=== PATIENT | female | born 1945 | race Caucasian/White ===

== ENCOUNTER 2019-07-30 16:28 | Emergency (ER) | payer MEDICARE, OTHER ==
[~2019-07-30] VITALS: Ht 147 cm; Wt 41.0 kg
--- NOTE | 2019-07-30 16:53 | ED Neurological Problem ---
General Chief Complaint: Trauma-Non Activation Stated Complaint: HIGH BLOOD PRESSURE Nursing Triage Note: THE [facility] REPORTS THAT THE PT WAS GETTING READY TO GO HOME FOR THE WEEKEND WITH HER GRANDDAUGHTER AND STATED SHE FELT A LITTLE DIZZY WITH A HEADACHE. THE [facility] GAVE HER TYLENOL AND IN[facility] WHEN HER GRANDDAUGHTER ARRIVED. THE PT FELL WHILE WALKING WITHOUT INJURIES REPORTED. PT HAS A HISTORY OF A CVA AND RIGHT-SIDED RESIDUAL WEAKNESS AND DEFICITS. BP AT THE GA WAS 124/107. Nursing Sepsis Screen: No Definite Risk Source: patient, EMS Exam Limitations: no limitations History of Present Illness Date Seen by Provider: Jul 30, 2019 Time Seen by Provider: 16:52 Initial Comments The patient is a 73-year-old white female who lives at a care facility. Earlier this afternoon she was eager to go to her granddaughter's home as she had a headache and thought it would be better served to be in a quiet place. She then complained of increasing headache and dizziness. The facility found her blood pressure to be elevated. The ambulance was called and after negotiation brought her here. She does not describe any loss of speech or new muscle/coordination deficits. She states that she had her first stroke in 1969. She more recently suffered a stroke that apparently gave her at least transient right-sided weakness. Her granddaughter states that earlier in 2018 she had an intracranial bleed. Timing/Duration: 1-3 hours Associated Symptoms: other (increasing memory loss over the past several years.) Allergies and Home Medications Patient Home Medication List Home Medication List Reviewed: Yes Review of Systems Review of Systems Constitutional: see HPI Eyes: No Symptoms Reported Ears, Nose, Mouth, Throat: no symptoms reported Respiratory: no symptoms reported Cardiovascular: no symptoms reported Gastrointestinal: no symptoms reported Genitourinary: no symptoms reported Musculoskeletal: no symptoms reported Skin: no symptoms reported Psychiatric/Neurological: No Symptoms Reported Endocrine: No Symptoms Reported Hematologic/Lymphatic: No Symptoms Reported Past Nciyguv-Vvxtjn-Qfuugx Hx Patient Social History Recent Foreign Travel: No Contact w/Someone Who Travel: No Recent Infectious Disease Expo: No Physical Exam Vital Signs Vital Signs - First Documented 07/30/19 16:41 Temp 36.8 Pulse 61 Resp 14 B/P (MAP) 182/91 (121) Pulse Ox 94 O2 Delivery Room Air Capillary Refill : Less Than 3 Seconds Height, Weight, BMI Height: '" Weight: lbs. oz. kg; 18.00 BMI Method: General Appearance: other (alert and somewhat contrary) HEENT: normal ENT inspection Neck: full range of motion Respiratory: chest non-tender, lungs clear, normal breath sounds, no respiratory distress, no accessory muscle use, respiratory distress Cardiovascular: normal peripheral pulses, regular rate, rhythm, no edema, no gallop, no JVD, no murmur Gastrointestinal: normal bowel sounds, non tender, soft, no organomegaly, no pulsatile mass Back: normal inspection, no CVA tenderness, no vertebral tenderness, CVA tenderness (R), CVA tenderness (L) Extremities: normal range of motion, non-tender, normal inspection, no pedal edema, no calf tenderness, normal capillary refill, pelvis stable 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, no motor/sensory deficits, alert, normal mood/affect, oriented x 3, abnormal cerebellar tests Coordination/Gait: normal finger to nose Motor/Sensory: no motor deficit, no sensory deficit, no pronator drift Skin: normal color, warm/dry Lymphatic: no adenopathy Appears older than stated age Progress/Results/Core Measures Results/Orders My Orders Orders - CONY ORTEGA MD Ct Head Wo (07/30/19 16:36) Ekg Tracing (07/30/19 17:38) Vital Signs/I&O 07/30/19 16:41 Temp 36.8 Pulse 61 Resp 14 B/P (MAP) 182/91 (121) Pulse Ox 94 O2 Delivery Room Air Blood Pressure Mean: 121 POS Departure Communication (Admissions) Given the history of relatively recent brainwave the patient was never a candidate for thrombolytic therapy. The physical findings are not significant enough to consider that either. She and her granddaughter were negotiating her abilities to be at the granddaughters home. The granddaughter was clear that after she had been there and left alone for a short time recently she was found lying in the yard. She is more than willing to accommodate her but only when she will be present at home. Impression Primary Impression: hypertension Additional Impressions: headache previous history of multiple strokes Disposition: HOME, SELF-CARE Condition: Stable/Unchanged Departure-Patient Inst. Decision time for Depature: 17:59 Add. Discharge Instructions: All discharge instructions reviewed with patient and/or family. Voiced understanding. Resume previous medications. Careful attention to blood pressure. Return to ER if physical symptoms increase CONY ORTEGA MD Jul 30, 2019 16:53 POS
--- NOTE | 2019-07-30 17:01 | Diagnostic Imaging Report ---
INDICATION: Fell. History of stroke. Poor historian. FINDINGS: Noncontrast CT scan of the head demonstrates moderate atrophy and white matter changes consistent with microvascular disease. An old lacunar infarct is present in the right basal ganglia. No insular ribbon sign or hyperdense MCA sign is present. Calcifications are present in both carotid siphons. There is also calcification of the vertebral arteries. No mass effect, midline shift, hemorrhage or extra-axial fluid collections are present. The osseous structures appear normal. IMPRESSION: There is atrophy and small vessel disease with an old lacunar infarct. Vascular calcifications are present. No acute findings are seen. Dictated by: Dictated on workstation # [id number]
[2019-07-30 17:56] VITALS: BP 170/84
--- OUTSIDE RECORDS SUMMARY | 2019-08-26 02:01 | XMS REPORT | Continuity of Care Document ---
Demographics Preferred Language Unknown Marital Status Unknown Sikhism Affiliation Unknown Race Unknown Ethnic Group Unknown Author Organization Unknown Address Unknown Phone Unavailable Allergies There is no data. Medications There is no data. Problems Date Dx Coded Attending Type Code Diagnosis Diagnosed By 08/03/2019 CONY ORTEGA MD, Ot I10 ESSENTIAL (PRIMARY) HYPERTENSION 08/03/2019 CONY ORTEGA MD Ot R03 .0 ELEVATED BLOOD-PRESSURE READING, W/O FOZIA 08/03/2019 OCNY ORTEGA MD Ot R51 HEADACHE 08/03/2019 CONY ORTEGA MD Ot Z86.73 PRSNL HX OF TIA (TIA), AND CEREB INFRC W 08/05/2019 CONY ORTEGA MD Ot I10 ESSENTIAL (PRIMARY) HYPERTENSION 08/05/2019 CONY ORTEGA MD Ot R03 .0 ELEVATED BLOOD-PRESSURE READING, W/O FOZIA 08/05/2019 CONY ORTEGA MD Ot R51 HEADACHE 08/05/2019 CONY ORTEGA MD Ot Z86.73 PRSNL HX OF TIA (TIA), AND CEREB INFRC W Procedures There is no data. Results Test Result Range CMP - 07/01/19 12:33 GLUCOSE 74 mg/dL 65-99 UREA NITROGEN (BUN) 21 mg/dL 7-25 CREATININE 0.74 mg/dL 0.60-0.93 eGFR NON-AFR. CENTRAL AFRICAN 80 mL/min/1.73m2 > OR = 60 eGFR 92 mL/min/1.73m2 > OR = 60 BUN/CREATININE RATIO NOT APPLICABLE (calc) 6-22 SODIUM 143 mmol/L 135-146 POTASSIUM 4.0 mmol/L 3.5-5.3 CHLORIDE 108 mmol/L 98-110 CARBON DIOXIDE 29 mmol/L 20-32 CALCIUM 8.6 mg/dL 8.6-10.4 PROTEIN, TOTAL 5.5 g/dL 6.1-8.1 ALBUMIN 3.3 g/dL 3.6-5.1 GLOBULIN 2.2 g/dL (calc) 1.9-3.7 ALBUMIN/GLOBULIN RATIO 1.5 (calc) 1.0-2. 5 BILIRUBIN, TOTAL 0.3 mg/dL 0.2-1.2 ALKALINE PHOSPHATASE 73 U/L 33-130 AST 14 U/L 10-35 ALT 4 U/L 6-29 CBC - 07/01/19 12:33 WHITE BLOOD CELL COUNT 4.8 Thousand/uL 3 .8-10.8 RED BLOOD CELL COUNT 3.06 Million/uL 3.8 0-5.10 HEMOGLOBIN 9.7 g/dL 11.7-15.5 HEMATOCRIT 30.3 % 35.0-45.0 MCV 99.0 fL 80.0-100.0 MCH 31.7 pg 27.0-33.0 MCHC 32.0 g/dL 32.0-36.0 RDW 13.5 % 11.0-15.0 PLATELET COUNT 216 Thousand/uL 140-400 MPV 10.7 fL 7.5-12.5 ABSOLUTE NEUTROPHILS 3106 cells/uL 1500- 7800 ABSOLUTE LYMPHOCYTES 1133 cells/uL 850-3 900 ABSOLUTE MONOCYTES 302 cells/uL 200-950 ABSOLUTE EOSINOPHILS 230 cells/uL 15-500 ABSOLUTE BASOPHILS 29 cells/uL 0-200 NEUTROPHILS 64.7 % NRG LYMPHOCYTES 23.6 % NRG MONOCYTES 6.3 % NRG EOSINOPHILS 4.8 % NRG BASOPHILS 0.6 % NRG Encounters ACCT No. Visit Date/Time Discharge Status Pt. Type Provider Facility Loc./Unit Complaint [id number] 07/01/2019 17:45:00 Document Registration [id number] 07/30/2019 16:30:00 019 17:56:00 DIS Outpatient JORDAN SANTOS, CONY Vazquez [facility] ER FS HIGH BLOOD PRESSURE
== END 2019-07-30 17:56 | disposition home or self-care (01) ==
LOC: ER FS 16:30
DX: I10 Essential (primary) hypertension (principal); R51 Headache; Z86.73 Personal history of transient ischemic attack (TIA), and cerebral infarction without residual deficits
CPT/HCPCS: 70450; 93005